=== PATIENT | male | born 1960 | race Caucasian/White ===

== ENCOUNTER 2017-04-30 08:54 | Day surgery (SDC) | payer BC ==
[~2017-04-30] VITALS: Ht 185.4 cm; Wt 96.1 kg
[2017-04-30] MEDS ORDERED: ZESTORETIC 20-121 EA (09:28)
[2017-04-30] MEDS ORDERED: ATOR20 (09:28)
[2017-04-30] MEDS ORDERED: LEVSOD150 PO (09:29)
[2017-04-30] MEDS ORDERED: TRAM50 (09:29)
== END 2017-04-30 13:08 | disposition home or self-care (01) ==
LOC: ORSCSDS 08:54
PROVIDERS: Orthopaedic Surgery
PROC: 0SBD4ZZ Excision of Left Knee Joint, Percutaneous Endoscopic Approach (ICD-10-PCS; principal; 2017-04-30 10:30)
DX: S83.242A Other tear of medial meniscus, current injury, left knee, initial encounter (principal); M94.262 Chondromalacia, left knee; I10 Essential (primary) hypertension; Z79.899 Other long term (current) drug therapy
CPT/HCPCS: J0171; J0690; J1100; J1885; J2250; J2405; J2765; J3010; J3301; J7040; J7120

== ENCOUNTER → 2020-03-22 | Outpatient (CLI) | payer OTHER ==
[~2020-03-22] MED LIST: ATOR20; LEVSOD150 PO; TRAM50; ZESTORETIC 20-121 EA
[2020-03-22 15:39] LABS: Free Thyroxine 1.1 ng/dL (0.70-1.60)
[2020-03-22 15:42] LABS: Thyroid Stimulating Hormone 0.11 uIU/mL (0.360-4.800)
== END | disposition home or self-care (01) ==
LOC: LAB SHORT 13:32 → LAB 13:32
PROVIDERS: Hospitalist
DX: E03.9 Hypothyroidism, unspecified (principal)
CPT/HCPCS: 84439; 84443

== ENCOUNTER → 2021-07-25 | Outpatient (CLI) | payer OTHER ==
[2021-07-25 16:05] LABS: Thyroid Stimulating Hormone 0.687 uIU/mL (0.360-4.800); Triiodothyronine, Free 2.77 pg/mL (2.18-3.98)
== END | disposition home or self-care (01) ==
LOC: LAB 10:10 → LAB SHORT 10:10
PROVIDERS: Hospitalist
DX: E03.9 Hypothyroidism, unspecified (principal)
CPT/HCPCS: 84439; 84443; 84481

== ENCOUNTER → 2022-05-28 | Outpatient (CLI) | payer OTHER ==
[2022-05-28 21:40] LABS: Free Thyroxine 1.18 ng/dL (0.70-1.60); Thyroid Stimulating Hormone 0.082 uIU/mL (0.360-4.800); Triiodothyronine, Free 2.98 pg/mL (2.18-3.98)
== END | disposition home or self-care (01) ==
LOC: LAB SHORT 08:40 → LAB 08:40
PROVIDERS: Hospitalist
DX: E03.9 Hypothyroidism, unspecified (principal)
CPT/HCPCS: 84439; 84443; 84481

== ENCOUNTER → 2022-07-02 | Outpatient (CLI) | payer OTHER | LOC: PLD 07:36 → LAB SHORT 07:36 | DX: L30.8 Other specified dermatitis (principal) | CPT/HCPCS: 88305; 88312 ==

== ENCOUNTER → 2023-07-02 | Outpatient (CLI) | payer OTHER ==
[2023-07-02 16:13] LABS: Bun/Creatinine Ratio 13.7 (12.0-20.0); Calcium, Blood 8.9 mg/dL (8.5-10.1); Creatinine, Blood 1.02 mg/dL (0.60-1.20); Free Thyroxine 1.07 ng/dL (0.70-1.60); Thyroid Stimulating Hormone 0.09 uIU/mL (0.360-4.800)
== END | disposition home or self-care (01) ==
LOC: LAB 09:20 → LAB SHORT 09:20
PROVIDERS: Hospitalist
DX: E03.9 Hypothyroidism, unspecified (principal); I10 Essential (primary) hypertension
CPT/HCPCS: 80048; 84439; 84443